=== PATIENT | female | born 1985 | race Caucasian/White ===

== ENCOUNTER 2019-05-17 01:58 | Emergency (ER) | payer OTHER ==
[2019-05-17 02:06] VITALS: BP 168/97
[2019-05-17] MEDS ORDERED: AZITHROMYCIN 250 MG TABLET PO STA (02:28)
[2019-05-17] MEDS ORDERED: DEXAMETHASONE 10 MG/ML VIAL PO STA (02:28)
[2019-05-17] MEDS ORDERED: CHERRY SYRUP 10 ML UDC PO ONE (02:28)
--- NOTE | 2019-05-17 02:31 | ED Physician Documentation ---
PD HPI URI - Stated complaint Stated Complaint: COUGH/CONGESTION - Chief complaint Chief Complaint: Resp - History obtained from History obtained from: Patient, Family - History of Present Illness Timing - onset: How many weeks ago (3) Timing duration: Weeks (3) Timing details: Gradual onset, Still present Associated symptoms: Nasal congestion, Rhinorrhea, Productive cough, Dyspnea Improves by: Medication Worsened by: Position Similar symptoms before: Diagnosis (influenza) Recently seen: Clinic - Additional information Additional information: Previously well 33-year-old female developed a cough and congestion about 3 weeks ago. She states that she spent about 5 days on the couch and really not feeling very well and got a bit better from then. She states that she did see a clinician at the urgent care and was diagnosed with influenza. She has had a persistent cough and she is now began to develop yellow and green phlegm that she is coughing up when she lays down. This has become thicker. Tonight she coughed so hard that she was not able to breathe and choked on phlegm. She has not had to use an inhaler previously she does not have prior issues with sinus infection or ear infection does not have a doctor, has needed to see a DrSandip in years. Review of Systems Constitutional: reports: Myalgias, Fatigue. denies: Fever Eyes: denies: Photophobia Ears: denies: Ear pain Nose: reports: Congestion Throat: denies: Sore throat Cardiac: denies: Chest pain / pressure, Palpitations Respiratory: reports: Cough. denies: Dyspnea GI: denies: Nausea, Vomiting : denies: Dysuria PD PAST MEDICAL HISTORY - Past Medical History Past Medical History: No - Past Surgical History Past Surgical History: No - Present Medications Home Medications: Ambulatory Orders Medication Instructions Recorded Confirmed Azithromycin [Zithromax] 250 mg PO DAILY #4 tablet 05/17/19 - Allergies Allergies/Adverse Reactions: Allergies Allergy/AdvReac Type Severity Reaction Status Date / Time No Known Drug Allergies Allergy Verified 05/17/19 02:06 - Social History Does the pt smoke?: No Smoking Status: Never smoker PD ED PE NORMAL - Vitals Vital signs reviewed: Yes (hypertensive ) - General General: Alert and oriented X 3, No acute distress, Well developed/nourished - HEENT HEENT: Atraumatic, PERRL, EOMI, Ears normal, Moist mucous membranes, Pharynx benign, Dentition benign - Neck Neck: Supple, no meningeal sign, No bony TTP - Cardiac Cardiac: RRR, No murmur - Respiratory Respiratory: No respiratory distress, Clear bilaterally - Abdomen Abdomen: Soft, Non tender - Back Back: No CVA TTP, No spinal TTP - Derm Derm: Normal color, Warm and dry, No rash - Extremities Extremities: No deformity, No edema, No calf tenderness / cord - Neuro Neuro: Alert and oriented X 3, combat control manager 2-12 intact, No motor deficit, No sensory deficit, Normal speech Eye Opening: Spontaneous Motor: Obeys Commands Verbal: Oriented GCS Score: 15 - Psych Psych: Normal mood, Normal affect Results - Vitals Vitals: Vital Signs - 24 hr 05/17/19 02:02 Temperature 36.6 C Heart Rate 100 Respiratory 18 Rate Blood Pressure 168/97 H O2 Saturation 99 PD MEDICAL DECISION MAKING - ED course Complexity details: considered differential, d/w patient, d/w family ED course: 33-year-old female with an upper respiratory tract infection likely started with a viral infection and now has some bacterial component to it. I did discuss with the patient the usual thickening of sputum toward the end of a viral infect ion. Today however the patient is choking on the volume of phlegm and I considered it important to trial antibiotic empirically. The patients lungs are clear this morning. Departure - Departure Disposition: 01 Home, Self Care Clinical Impression: Bronchitis Condition: Stable Instructions: ED Upper Resp Infec Abx Tx Follow-Up: [facility] [Provider Group] Prescriptions: Azithromycin [Zithromax] 250 mg PO DAILY #4 tablet
== END 2019-05-17 02:44 | disposition home or self-care (01) ==
LOC: ED 01:58
DX: J40 Bronchitis, not specified as acute or chronic (principal); J06.9 Acute upper respiratory infection, unspecified
CPT/HCPCS: 99282; 99284; A9270

== ENCOUNTER 2021-10-31 07:15 | Outpatient (CLI) | payer OTHER ==
--- NOTE | 2021-10-31 10:33 | CT Report ---
PROCEDURE: HEAD WO INDICATIONS: HEADACHE TECHNIQUE: Noncontrast 4.5 mm thick angled axial sections acquired from the foramen magnum to the vertex. For r adiation dose reduction, the following was used: automated exposure control, adjustment of mA and/or kV according to patient size. COMPARISON: None. FINDINGS: Image quality: Excellent. CSF spaces: Basal cisterns are patent. No extra-axial fluid collections. Ventricles are normal in size and shape. Brain: No midline shift. No intracranial masses or hemorrhage. Morales-white matter interface is norm al. Skull and face: Calvarium and visualized facial bones are intact, without suspicious lesions. Sinuses: Visualized sinuses and mastoids are clear. IMPRESSION: No acute intracranial disease process. No abnormal intracranial mass or mass effect. No intracranial hemorrhage. If there is continued clinical suspicion for intracranial pathology consider MRI of the brain for add itional evaluation. Reviewed by: Amber King MD, PhD on 10/31/2021 10:31 AM PDT Approved by: Amber King MD, PhD on 10/31/2021 10:31 AM PDT Station ID: [id number]
== END 2021-10-31 07:16 | disposition home or self-care (01) ==
LOC: DI 07:15
PROVIDERS: ATTEND Family Medicine
DX: R51.9 Headache, unspecified (principal)